=== PATIENT | male | born 1985 | race Caucasian/White ===

== ENCOUNTER 2021-03-29 13:20 | Emergency (ER) | payer OTHER ==
[~2021-03-29] VITALS: Ht 175.3 cm; Wt 70.9 kg
[2021-03-29 13:20] VITALS: BP 142/83
[~2021-03-29 13:20] MED LIST: PROZ20CA11 PO; SERO1TAB PO; TRAZ-252 PO; no home meds
== END 2021-03-29 15:01 | disposition home or self-care (01) ==
LOC: M ED 13:20
DX: J02.9 Acute pharyngitis, unspecified (principal)

== ENCOUNTER → 2023-10-07 | Outpatient (CLI) | payer OTHER ==
[~2023-10-07] MED LIST changes: +AMLO1TAB25 PO; +CLONI1TA PO; +DOXY-440 PO; +METH-1177 PO; +MOM30SS2 PO; +POLY1POW38 PO; +SENN1TAB85 PO; +SILV50CR TOP
== END ==
LOC: M RAD 09:35
PROVIDERS: ATTEND Physician Assistant Medical
DX: S02.2XXA Fracture of nasal bones, initial encounter for closed fracture (principal); Y92.9 Unspecified place or not applicable; Y93.9 Activity, unspecified

== ENCOUNTER → 2023-12-06 | Outpatient (REF) | payer SELFPAY ==
[2023-12-06 20:37] LABS: Trichomonas vaginalis (AMP) NOT DETECTED (NEGATIVE)
[2023-12-06 21:01] LABS: GC DNA AMPLIFICATION NEGATIVE (NEGATIVE)
== END ==
LOC: M LAB REF 16:16
PROVIDERS: ATTEND Physician Assistant
DX: Z11.9 Encounter for screening for infectious and parasitic diseases, unspecified (principal)